=== PATIENT | male | born 1965 | race Caucasian/White ===

== ENCOUNTER 2016-10-15 20:34 | Emergency (ER) | payer OTHER ==
[~2016-10-15] VITALS: Ht 165.1 cm; Wt 59.0 kg
[~2016-10-15 20:34] MED LIST: CIPR500T4 PO; FLAG500T PO; INSU100V2 IJ; INSU100V3 SC; NEUR100C PO; PERC10TA27 PO
[2016-10-15 20:53] VITALS: BP 138/83; PULSE 101; RESP 16; TEMP 98.5; O2SAT 97
[2016-10-15 21:24] VITALS: PULSE 93
[2016-10-15 21:35] LABS: AUTOMATED NEUTROPHIL # 2.6 TH/MM3 (1.8-7.7); BASOPHIL # 0.1 TH/MM3 (0-0.2); EOSINOPHIL % 0.3 % (0.0-4.0); HEMATOCRIT 48.4 % (39.0-51.0); HEMO FLAGS DIFF FINAL; LYMPH % 40.6 % (9.0-44.0); LYMPHOCYTE # 2.1 TH/MM3 (1.0-4.8); MEAN CELL VOLUME 95.6 FL (80.0-100.0); MEAN CORPUSCULAR HEMOGLOBIN 32.6 PG (27.0-34.0); MEAN CORPUSCULAR HGB CONC 34.1 % (32.0-36.0); MONO % 6.7 % (0.0-8.0); NEUT % 51.4 % (16.0-70.0); PLATELET COUNT 272 TH/MM3 (150-450); RED BLOOD COUNT 5.06 MIL/MM3 (4.50-5.90); RED CELL DISTRIBUTION WIDTH 12.7 % (11.6-17.2); WHITE BLOOD COUNT 5.1 TH/MM3 (4.0-11.0)
[2016-10-15 21:54] LABS: AMPHETAMINE, URINE NEG (NEG); COCAINE, URINE NEG (NEG)
[2016-10-15] MEDS ORDERED: busPIRone HCL 10 MG TAB PO ONE (22:15)
--- NOTE | 2016-10-15 22:17 | PD ---
HPI Chief Complaint: Alcohol/Drug Intoxication Time Seen by Provider: 21:45 Travel History International Travel<30 days: No Contact w/Intl Traveler<30days: No Traveled to known affect area: No History of Present Illness HPI Patient is a 51-year-old male who was brought into the emergency Department after a home check was performed and patient could not answer where he was, who he was or what day it was. Patient does admit to drinking alcohol today. He has no physical complaints at this time. Patient was brought in under [facility]. [facility] Past Medical History Arthritis: No Asthma: No Autoimmune Disease: No Blood Disorders: No Anxiety: No Depression: No Heart Rhythm Problems: No Cancer: No Cardiovascular Problems: No High Cholesterol: No Chest Pain: No Congestive Heart Failure: No COPD: Yes Cerebrovascular Accident: No Diabetes: Yes Patient Takes Glucophage: No Diminished Hearing: No Endocrine: Yes Gastrointestinal Disorders: Yes GERD: No Glaucoma: No Genitourinary: No Headaches: No Hepatitis: Yes Hiatal Hernia: No Hypertension: No Immune Disorder: No Implanted Vascular Access Dvce: No Kidney Stones: Yes (right) Medical other: Yes (GERD, HEPATITIS OF UNKNOWN TYPE, SEIZURE WHEN BG LOW, HX PANCREATITIS) Musculoskeletal: No Neurologic: Yes Psychiatric: Yes (HISTORY OF ALCOHOLISM) Reproductive: No Respiratory: Yes (HEAVY SMOKER, COPD) Immunizations Current: Yes Migraines: No Myocardial Infarction: No Pancreatitis: Yes Renal Failure: No Seizures: Yes (R/T DIABETES) Sleep Apnea: Yes Thyroid Disease: No Ulcer: No Tetanus Vaccination: < 5 Years Influenza Vaccination: Yes PNEUMOCCOCAL Vaccine (Year): 2 Past Surgical History Abdominal Surgery: Yes (APPENDECTOMY) AICD: No Appendectomy: Yes Cardiac Surgery: No Ear Surgery: No Endocrine Surgery: No Eye Surgery: No Genitourinary Surgery: No Gynecologic Surgery: No Neurologic Surgery: No Oral Surgery: No Pacemaker: No Thoracic Surgery: No Other Surgery: Yes (urinary stent 12/02/11 Dr Khan) Social History Alcohol Use: Yes (socially) Tobacco Use: Yes (2 PPD) Substance Use: Yes (PER PT HX of HEAVY ETOH, XANAX, VALIUM, PERCOCET) Allergies-Medications (Allergen,Severity, Reaction): Coded Allergies: Penicillin (Verified Allergy, Severe, 10/15/16) Reported Meds & Prescriptions Reported Meds & Active Scripts Active Review of Systems ROS Limitations: Intoxication Except as stated in HPI: all other systems reviewed are Neg Physical Exam Narrative GENERAL: Thin, well-developed, alert, intoxicated appearing male. SKIN: Warm and dry. HEAD: Atraumatic. Normocephalic. EYES: Pupils equal and round. No scleral icterus. No injection or drainage. ENT: No nasal bleeding or discharge. Mucous membranes pink and moist. NECK: Trachea midline. No JVD. CARDIOVASCULAR: Regular rate and rhythm. No murmur appreciated. RESPIRATORY: No accessory muscle use. Clear to auscultation. Breath sounds equal bilaterally. GASTROINTESTINAL: Abdomen soft, non-tender, nondistended. Hepatic and splenic margins not palpable. MUSCULOSKELETAL: No obvious deformities. No clubbing. No cyanosis. No edema. NEUROLOGICAL: Awake and alert. No obvious cranial nerve deficits. Motor grossly within normal limits. Normal speech. PSYCHIATRIC: Appropriate mood and affect. Data Data Last Documented VS Vital Signs Date Time Temp Pulse Resp B/P Pulse Ox O2 Delivery O2 Flow Rate FiO2 10/16/16 05:30 101 20 148/88 96 Room Air 10/15/16 20:53 98.5 Orders Complete Blood Count With Diff (10/15/16 20:47) Comprehensive Metabolic Panel (10/15/16 20:47) Drug Screen, Random Urine (10/15/16 20:47) Alcohol (Ethanol) (10/15/16 20:47) Salicylates (Aspirin) (10/15/16 20:47) Tylenol (Acetaminophen) (10/15/16 20:47) Buspirone (Buspar) (10/15/16 22:15) Blood Gas Venous (Vbg) (10/15/16 22:31) Sodium Chlor 0.9% 1000 Ml Inj (Ns 1000 M (10/15/16 22:45) Iv Access Insert/Monitor (10/15/16 22:32) Sodium Chlor 0.9% 1000 Ml Inj (Ns 1000 M (10/16/16 00:15) Sodium Chlor 0.9% 1000 Ml Inj (Ns 1000 M (10/16/16 00:15) Sodium Chlor 0.9% 1000 Ml Inj (Ns 1000 M (10/16/16 00:15) Basic Metabolic Panel (Bmp) (10/16/16 04:00) Lorazepam Inj (Ativan Inj) (10/16/16 01:00) Protein Corrected Calcium(Pcc) (10/16/16 04:00) Labs Laboratory Tests Test 10/15/16 10/15/16 10/16/16 21:10 23:00 04:00 White Blood Count 5.1 TH/MM3 Red Blood Count 5.06 MIL/MM3 Hemoglobin 16.5 GM/DL Hematocrit 48.4 % Mean Corpuscular Volume 95.6 FL Mean Corpuscular Hemoglobin 32.6 PG Mean Corpuscular Hemoglobin 34.1 % Concent Red Cell Distribution Width 12.7 % Platelet Count 272 TH/MM3 Mean Platelet Volume 7.6 FL Neutrophils (%) (Auto) 51.4 % Lymphocytes (%) (Auto) 40.6 % Monocytes (%) (Auto) 6.7 % Eosinophils (%) (Auto) 0.3 % Basophils (%) (Auto) 1.0 % Neutrophils # (Auto) 2.6 TH/MM3 Lymphocytes # (Auto) 2.1 TH/MM3 Monocytes # (Auto) 0.3 TH/MM3 Eosinophils # (Auto) 0.0 TH/MM3 Basophils # (Auto) 0.1 TH/MM3 CBC Comment DIFF FINAL Differential Comment Sodium Level 133 MEQ/L 140 MEQ/L Potassium Level 4.2 MEQ/L 3.8 MEQ/L Chloride Level 92 MEQ/L 104 MEQ/L Carbon Dioxide Level 20.8 MEQ/L 20.6 MEQ/L Anion Gap 20 MEQ/L 15 MEQ/L Blood Urea Nitrogen 8 MG/DL 7 MG/DL Creatinine 0.96 MG/DL 0.80 MG/DL Estimat Glomerular Filtration 82 ML/MIN 101 ML/MIN Rate Random Glucose 365 MG/DL 261 MG/DL Calcium Level 8.5 MG/DL 7.2 MG/DL Total Bilirubin 0.4 MG/DL Aspartate Amino Transf 133 U/L (AST/SGOT) Alanine Aminotransferase 83 U/L (ALT/SGPT) Alkaline Phosphatase 212 U/L Total Protein 7.8 GM/DL 5.9 GM/DL Albumin 4.0 GM/DL Salicylates Level 2.0 MG/DL Urine Opiates Screen NEG Acetaminophen Level LESS THAN 2.0 MCG/ML Urine Barbiturates Screen NEG Urine Amphetamines Screen NEG Urine Benzodiazepines Screen POS Urine Cocaine Screen NEG Urine Cannabinoids Screen NEG Ethyl Alcohol Level 380 MG/DL Blood Gas Puncture Site Blood Gas Patient Temperature 98.6 Venous Blood pH 7.35 Venous Blood Partial Pressure 36 mmHg CO2 Venous Blood Partial Pressure 38 mmHg O2 Venous Blood HCO3 20 mmol/L Venous Blood Oxygen Saturation 59 % Venous Blood Oxygen Content 12.2 Vol % Venous Blood Base Excess -5.0 mmol/L Oxygen Delivery Device ROOM AIR Blood Gas Inspired Oxygen 21 % Protein Corrected Calcium 7.8 MG/DL MDM Medical Decision Making Medical Screen Exam Complete: Yes Emergency Medical Condition: Yes Interpretation(s) Laboratory Tests Test 10/15/16 21:10 White Blood Count 5.1 TH/MM3 Red Blood Count 5.06 MIL/MM3 Hemoglobin 16.5 GM/DL Hematocrit 48.4 % Mean Corpuscular Volume 95.6 FL Mean Corpuscular Hemoglobin 32.6 PG Mean Corpuscular Hemoglobin 34.1 % Concent Red Cell Distribution Width 12.7 % Platelet Count 272 TH/MM3 Mean Platelet Volume 7.6 FL Neutrophils (%) (Auto) 51.4 % Lymphocytes (%) (Auto) 40.6 % Monocytes (%) (Auto) 6.7 % Eosinophils (%) (Auto) 0.3 % Basophils (%) (Auto) 1.0 % Neutrophils # (Auto) 2.6 TH/MM3 Lymphocytes # (Auto) 2.1 TH/MM3 Monocytes # (Auto) 0.3 TH/MM3 Eosinophils # (Auto) 0.0 TH/MM3 Basophils # (Auto) 0.1 TH/MM3 CBC Comment DIFF FINAL Differential Comment Sodium Level 133 MEQ/L Potassium Level 4.2 MEQ/L Chloride Level 92 MEQ/L Carbon Dioxide Level 20.8 MEQ/L Anion Gap 20 MEQ/L Blood Urea Nitrogen 8 MG/DL Creatinine 0.96 MG/DL Estimat Glomerular Filtration 82 ML/MIN Rate Random Glucose 365 MG/DL Calcium Level 8.5 MG/DL Total Bilirubin 0.4 MG/DL Aspartate Amino Transf 133 U/L (AST/SGOT) Alanine Aminotransferase 83 U/L (ALT/SGPT) Alkaline Phosphatase 212 U/L Total Protein 7.8 GM/DL Albumin 4.0 GM/DL Salicylates Level 2.0 MG/DL Urine Opiates Screen NEG Acetaminophen Level LESS THAN 2.0 MCG/ML Urine Barbiturates Screen NEG Urine Amphetamines Screen NEG Urine Benzodiazepines Screen POS Urine Cocaine Screen NEG Urine Cannabinoids Screen NEG Ethyl Alcohol Level 380 MG/DL Vital Signs Date Time Temp Pulse Resp B/P Pulse Ox O2 Delivery O2 Flow Rate FiO2 10/15/16 21:24 93 10/15/16 20:56 16 10/15/16 20:53 98.5 101 16 138/83 97 Differential Diagnosis Acute intoxication versus dementia versus psychosis versus mood disorder versus substance abuse versus other Narrative Course Patient's 51-year-old male who is brought into the emergency department after a home check revealed patient answering questions inappropriately and patient was felt to be unsafe. Labs ordered and pending. Patient's vital signs are stable. Patient is diabetic, he does not know whether or not he took his insulin today. He is on regular and Novolin. CBC is unremarkable Chemistry with a sodium of 133, anion gap of 20, glucose 365, mild transaminitis. Toxicology was positive for benzodiazepines Alcohol level was 380. IV fluids and BuSpar ordered and pending. VBG ordered. Care of patient was transferred to my attending physician Dr. Graves who will determine patient's disposition. Siri Franz Oct 15, 2016 22:17
[2016-10-15 22:18] LABS: ACETAMINOPHEN LESS THAN 2.0 MCG/ML (10.0-30.0); ALKALINE PHOSPHATASE 212 U/L (45-117); ALT (GPT) 83 U/L (12-78); ANION GAP 20 MEQ/L (5-15); AST (GOT) 133 U/L (15-37); BICARBONATE 20.8 MEQ/L (21.0-32.0); BLOOD UREA NITROGEN 8 MG/DL (7-18); CHLORIDE 92 MEQ/L (98-107); GLOMERULAR FILTRATION RATE 82 ML/MIN (>89); POTASSIUM 4.2 MEQ/L (3.5-5.1); SODIUM (NA) 133 MEQ/L (136-145); TOTAL BILIRUBIN ADULT 0.4 MG/DL (0.2-1.0)
[2016-10-15 22:20] LABS: BARBITURATES, URINE NEG (NEG)
[2016-10-15] MEDS ORDERED: SODIUM CHLOR 0.9% 1000 ML INJ 1,000 ML IV ONE (22:45)
[2016-10-15 23:13] LABS: BLOOD GAS VENOUS HCO3 20 mmol/L (22-26); BLOOD GAS VENOUS O2 CONTENT 12.2 Vol % (9.0-17.0); BLOOD GAS VENOUS O2 HGB SAT 59 % (70-76); BLOOD GAS VENOUS PCO2 36 mmHg (44-48); BLOOD GAS VENOUS PO2 38 mmHg (35-40); BLOOD GAS VENOUS pH 7.35 (7.360-7.400); CRITICAL VALUE NO; FIO2 21 %; OXYGEN DEVICE ROOM AIR; STAT YES; TEMP CORR TO 98.6
[2016-10-16] MEDS ORDERED: SODIUM CHLOR 0.9% 1000 ML INJ 1,000 ML IV ONE ×3 (00:15)
--- NOTE | 2016-10-16 00:28 | PD ---
Physical Exam Date Seen by Provider: Oct 16, 2016 Narrative Care was assumed from the PA at 11 PM. This patient was brought in under the Act. He had initially been taken to another facility not medically clear because his glucose was high. The patient is noncompliant with treatment for his diabetes. Data Data Last Documented VS Vital Signs Date Time Temp Pulse Resp B/P Pulse Ox O2 Delivery O2 Flow Rate FiO2 10/16/16 01:25 88 18 133/74 94 Room Air 10/15/16 20:53 98.5 Orders Complete Blood Count With Diff (10/15/16 20:47) Comprehensive Metabolic Panel (10/15/16 20:47) Drug Screen, Random Urine (10/15/16 20:47) Alcohol (Ethanol) (10/15/16 20:47) Salicylates (Aspirin) (10/15/16 20:47) Tylenol (Acetaminophen) (10/15/16 20:47) Buspirone (Buspar) (10/15/16 22:15) Blood Gas Venous (Vbg) (10/15/16 22:31) Sodium Chlor 0.9% 1000 Ml Inj (Ns 1000 M (10/15/16 22:45) Iv Access Insert/Monitor (10/15/16 22:32) Sodium Chlor 0.9% 1000 Ml Inj (Ns 1000 M (10/16/16 00:15) Sodium Chlor 0.9% 1000 Ml Inj (Ns 1000 M (10/16/16 00:15) Sodium Chlor 0.9% 1000 Ml Inj (Ns 1000 M (10/16/16 00:15) Basic Metabolic Panel (Bmp) (10/16/16 04:00) Lorazepam Inj (Ativan Inj) (10/16/16 01:00) Protein Corrected Calcium(Pcc) (10/16/16 04:00) Labs Laboratory Tests Test 10/15/16 10/15/16 10/16/16 21:10 23:00 04:00 White Blood Count 5.1 TH/MM3 Red Blood Count 5.06 MIL/MM3 Hemoglobin 16.5 GM/DL Hematocrit 48.4 % Mean Corpuscular Volume 95.6 FL Mean Corpuscular Hemoglobin 32.6 PG Mean Corpuscular Hemoglobin 34.1 % Concent Red Cell Distribution Width 12.7 % Platelet Count 272 TH/MM3 Mean Platelet Volume 7.6 FL Neutrophils (%) (Auto) 51.4 % Lymphocytes (%) (Auto) 40.6 % Monocytes (%) (Auto) 6.7 % Eosinophils (%) (Auto) 0.3 % Basophils (%) (Auto) 1.0 % Neutrophils # (Auto) 2.6 TH/MM3 Lymphocytes # (Auto) 2.1 TH/MM3 Monocytes # (Auto) 0.3 TH/MM3 Eosinophils # (Auto) 0.0 TH/MM3 Basophils # (Auto) 0.1 TH/MM3 CBC Comment DIFF FINAL Differential Comment Sodium Level 133 MEQ/L 140 MEQ/L Potassium Level 4.2 MEQ/L 3.8 MEQ/L Chloride Level 92 MEQ/L 104 MEQ/L Carbon Dioxide Level 20.8 MEQ/L 20.6 MEQ/L Anion Gap 20 MEQ/L 15 MEQ/L Blood Urea Nitrogen 8 MG/DL 7 MG/DL Creatinine 0.96 MG/DL 0.80 MG/DL Estimat Glomerular Filtration 82 ML/MIN 101 ML/MIN Rate Random Glucose 365 MG/DL 261 MG/DL Calcium Level 8.5 MG/DL 7.2 MG/DL Total Bilirubin 0.4 MG/DL Aspartate Amino Transf 133 U/L (AST/SGOT) Alanine Aminotransferase 83 U/L (ALT/SGPT) Alkaline Phosphatase 212 U/L Total Protein 7.8 GM/DL Albumin 4.0 GM/DL Salicylates Level 2.0 MG/DL Urine Opiates Screen NEG Acetaminophen Level LESS THAN 2.0 MCG/ML Urine Barbiturates Screen NEG Urine Amphetamines Screen NEG Urine Benzodiazepines Screen POS Urine Cocaine Screen NEG Urine Cannabinoids Screen NEG Ethyl Alcohol Level 380 MG/DL Blood Gas Puncture Site Blood Gas Patient Temperature 98.6 Venous Blood pH 7.35 Venous Blood Partial Pressure 36 mmHg CO2 Venous Blood Partial Pressure 38 mmHg O2 Venous Blood HCO3 20 mmol/L Venous Blood Oxygen Saturation 59 % Venous Blood Oxygen Content 12.2 Vol % Venous Blood Base Excess -5.0 mmol/L Oxygen Delivery Device ROOM AIR Blood Gas Inspired Oxygen 21 % [facility] Supervised Visit with SY: Yes Narrative Course CBC & BMP Diagram 10/15/16 21:10 Blood alcohol level is 380. I have ordered IV fluids and a repeat BMP following the IV fluids. I have ordered 3 L. 12:30 AM The patient asked for and received a diet tray. Immediately after he finished eating he requested medication for his DTs before he starts vomiting again. 5:45 AM Patient has been resting comfortably all night. His glucose has come down. He appears to be stable for discharge at this point. Diagnosis Primary Impression: Alcohol intoxication Qualified Code: F10.129 - Alcohol intoxication, with unspecified complication Additional Impressions: Hyperglycemia Electrolyte abnormality Noncompliance Disposition: 01 DISCHARGE HOME Condition: Stable Alisson Graves MD Oct 16, 2016 00:28
[2016-10-16] MEDS ORDERED: LORazepam 2 MG/ML VIAL IV PUSH ONE (01:00)
[2016-10-16 01:25] VITALS: BP 133/74; PULSE 88; RESP 18; O2SAT 94
[2016-10-16 05:30] VITALS: BP 148/88; PULSE 101; RESP 20; O2SAT 96
[2016-10-16 05:31] LABS: BICARBONATE 20.6 MEQ/L (21.0-32.0); POTASSIUM 3.8 MEQ/L (3.5-5.1)
[2016-10-16 06:34] LABS: CALCIUM-PROTEIN CORRECTED 7.8 MG/DL (8.5-10.1)
== END 2016-10-16 07:37 | disposition home or self-care (01) ==
LOC: NEPA 20:34 → NEPC 10-16 07:37
DX: F10.231 Alcohol dependence with withdrawal delirium (principal); F19.120 Other psychoactive substance abuse with intoxication, uncomplicated; Y90.8 Blood alcohol level of 240 mg/100 ml or more; E11.65 Type 2 diabetes mellitus with hyperglycemia; F17.210 Nicotine dependence, cigarettes, uncomplicated
CPT/HCPCS: 80048; 80053; 80307; 80320; 82805; 84155; 85025; 96361; 96374; 99285; J2060; J7030; 80329; G0480